=== PATIENT | female | born 1955 | race Caucasian/White ===

== ENCOUNTER 2021-05-01 09:34 | Outpatient (CLI) | payer MEDICARE ==
[2021-05-01 10:07] LABS: Estimated GFR-MDRD - POC Greater than 90
== END 2021-05-01 09:35 | disposition home or self-care (01) ==
LOC: CSHCT 09:34
PROVIDERS: ATTEND Urology
DX: R31.9 Hematuria, unspecified (principal); Z87.440 Personal history of urinary (tract) infections; K86.2 Cyst of pancreas; K76.0 Fatty (change of) liver, not elsewhere classified; K57.30 Diverticulosis of large intestine without perforation or abscess without bleeding
CPT/HCPCS: 74178; 82565

== ENCOUNTER 2022-01-02 14:50 | Outpatient (CLI) | payer MEDICARE | END 2022-01-02 14:51 | disposition home or self-care (01) | LOC: CSHMAMMO 14:50 | PROVIDERS: ATTEND Family Medicine | DX: Z12.31 Encounter for screening mammogram for malignant neoplasm of breast (principal) | CPT/HCPCS: 77063; 77067 ==

== ENCOUNTER 2022-07-29 07:53 | Outpatient (CLI) | payer MEDICARE ==
[2022-07-29] MEDS ORDERED: Iopamidol 370 76% 100 ML VIAL ONE (08:58)
== END 2022-07-29 07:54 | disposition home or self-care (01) ==
LOC: CSHCT 07:53
PROVIDERS: ATTEND Internal Medicine
DX: R06.00 Dyspnea, unspecified (principal); R91.8 Other nonspecific abnormal finding of lung field; J43.9 Emphysema, unspecified
CPT/HCPCS: 71275

== ENCOUNTER 2024-06-23 11:49 | Outpatient (CLI) | payer MEDICARE | END 2024-06-23 11:50 | disposition home or self-care (01) | LOC: CSHMAMMO 11:49 | PROVIDERS: ATTEND Family Medicine | DX: Z12.31 Encounter for screening mammogram for malignant neoplasm of breast (principal) | CPT/HCPCS: 77063; 77067 ==